=== PATIENT | male | born 1955 | race Caucasian/White ===

== ENCOUNTER → 2017-11-12 | Outpatient (CLI) | payer OTHER ==
--- NOTE | 2017-11-13 13:35 | Diagnostic Imaging Report ---
History: Low back pain for 2 weeks. No trauma Comparison studies: None Technique: Sagittal, coronal and axial T2 , sagittal T1 and IR, axial spin density oblique. Intravenous contrast: None Findings: Number of lumbar vertebral bodies:5 Alignment: Straightening of the normal lordosis.No scoliosis. Soft tissues: No T2 hyperintense inflammatory changes. Bilateral small renal cysts the largest one located at the interpolar region measuring approximately 1 cm Paraspinal muscles: No signal abnormalities. No atrophy. Lower thoracic cord:Normal in signal and morphology. The tip of the conus is at T12-L1. Cauda equina: No masses. No arachnoiditis. Vertebrae: Normal in height and signal intensity. No compression fractures, infection or neoplasm. Degenerative changes: L1-L2: Disc degeneration with loss of T2 signal and decreased intervertebral space. Central and right central disc protrusion results in mild impression of the thecal sac without significant canal stenosis or foraminal narrowing. L2-L3: Disc degeneration with loss of T2 signal. Asymmetric right disc bulge results in mild right foraminal narrowing. Patent canal and left foramen. L3-L4: Diffuse disc bulge with superimposed right foraminal disc protrusion and mild facet hypertrophy results in no significant canal stenosis and moderate right foraminal narrowing. L4-L5: Disc degeneration with loss of T2 signal. Diffuse disc bulge and mild facet hypertrophy without significant canal stenosis or foraminal narrowing. Trace of fluid in the bilateral facet joint with posteriorly projecting 3 mm synovial cyst arising from the right. L5-S1: Mild diffuse disc bulge and mild facet hypertrophy without significant canal stenosis or foraminal narrowing. Additional findings: None IMPRESSION: Central and right central disc protrusion at L1-L2 without significant canal stenosis or foraminal narrowing. Right foraminal disc protrusion at L3-L4 results in moderate right foraminal narrowing. Mild facet hypertrophy at the lower lumbar spine with mild synovitis changes at L4-L5. Other degenerative changes as described above Signed by: DR Lenny Bernardo M.D. on 11/13/2017 1:32 PM
== END ==
LOC: MRI 11:19
PROVIDERS: ATTEND Family Medicine
DX: M54.41 Lumbago with sciatica, right side (principal)
CPT/HCPCS: 72148